=== PATIENT | male | born 1985 | race Caucasian/White ===

== ENCOUNTER 2018-02-16 17:35 | Emergency (ER) | payer BC ==
[~2018-02-16] VITALS: Ht 182.9 cm; Wt 84.0 kg
[2018-02-16] MEDS ORDERED: ALLERGY MED (17:54)
[2018-02-16] MEDS ORDERED: CHOLESTEROL PILL (17:54)
[2018-02-16] MEDS ORDERED: KEFLEX500 MG PO (18:19)
[2018-02-16 18:30] VITALS: BP 141/84
== END 2018-02-16 18:30 | disposition home or self-care (01) | DRG 607 ==
LOC: ED 17:35
DX: L55.1 Sunburn of second degree (principal); L01.00 Impetigo, unspecified; F17.210 Nicotine dependence, cigarettes, uncomplicated; X32.XXXA Exposure to sunlight, initial encounter; Y92.832 Beach as the place of occurrence of the external cause